=== PATIENT | male | born 1960 | race American Indian/Alaskan Native ===

== ENCOUNTER 2019-11-20 14:30 | Emergency (ER) | payer OTHER ==
[~2019-11-20] VITALS: Ht 160 cm; Wt 60.3 kg
[2019-11-20 15:05] LABS: PLATELET COUNT 358 K/uL (142-355)
[2019-11-20 15:13] LABS: POTASSIUM 4.1 mmol/L (3.6-5.2)
[2019-11-20 16:18] VITALS: BP 123/75; TEMP 98.6
[2019-11-20] MEDS ORDERED: ASPIRIN 81 LOW81 MG PO (17:59)
[2019-11-20] MEDS ORDERED: XARELTO20 MG PO (18:00)
[2019-11-20] MEDS ORDERED: AMLO2.5T PO (18:00)
[2019-11-20] MEDS ORDERED: CLARITIN10 M1 PO (18:01)
[2019-11-20] MEDS ORDERED: FLUOXETINE20 MG PO (18:01)
[2019-11-20] MEDS ORDERED: FERROUS SULF325 MG PO (18:01)
[2019-11-20] MEDS ORDERED: LACTULOSE10 GM/15 M PO (18:02)
[2019-11-20] MEDS ORDERED: DOK100 MG PO (18:03)
[2019-11-20] MEDS ORDERED: GRALISE600 MG PO (18:04)
[2019-11-20] MEDS ORDERED: ALLERGY RELIEF 25 MG PO (18:05)
[2019-11-20] MEDS ORDERED: CHLORASEPTIC1.4 % MT (18:05)
[2019-11-20] MEDS ORDERED: TYLENOL325 MG PO (18:06)
[2019-11-20] MEDS ORDERED: CHEST CONG100 MG/5 M PO (18:06)
[2019-11-20] MEDS ORDERED: DIPH12.521 PO (18:07)
[2019-11-20] MEDS ORDERED: TRAZODONE HYDRO50 MG PO (18:08)
[2019-11-20] MEDS ORDERED: HALO5INJ3 IM (18:08)
[2019-11-20] MEDS ORDERED: POLY GLYCOL3350 M1 PO (18:09)
[2019-11-20] MEDS ORDERED: LIPITOR80 MG PO (18:10)
[2019-11-20] MEDS ORDERED: [UNRECOGNIZED DRUG - OTHER] EX (18:46)
== END 2019-11-20 16:18 | disposition still patient (30) ==
LOC: ED 14:38
PROVIDERS: Hospitalist
DX: F03.91 Unspecified dementia, unspecified severity, with behavioral disturbance (principal); I69.359 Hemiplegia and hemiparesis following cerebral infarction affecting unspecified side; I69.391 Dysphagia following cerebral infarction; Z11.59 Encounter for screening for other viral diseases; Z04.6 Encounter for general psychiatric examination, requested by authority
CPT/HCPCS: 80053; 85027; 87635; 93005; 99283; U0003

== ENCOUNTER 2021-01-02 19:54 | Emergency (ER) | payer OTHER ==
[~2021-01-02] VITALS: Ht 160 cm; Wt 65.3 kg
[~2021-01-02 19:54] MED LIST: ALLERGY RELIEF 25 MG PO; AMLO2.5T PO; ARIPIPRAZOLE5 MG PO; ASPIRIN 81 LOW81 MG PO; ASPIRIN EC PO; CHEST CONG100 MG/5 M PO; CHLORASEPTIC1.4 % MT; CHOL100034 PO; CHOLECALCIFEROL PO; CIMETIDINE400 MG PO; CLARITIN10 M1 PO; DIPH12.521 PO; DIVALPROEX500 M1 PO; DOK100 MG PO; DONE5TAB PO; DONEPEZIL HYDRO10 MG PO; ESCI10TA PO; FERROUS SULF325 MG PO; FLUOXETINE20 MG PO; FOLI1TAB26 PO; GABA300C2 PO; GRALISE600 MG PO; HALO5INJ3 IM; HALO5INJ3 INJ; LACTULOSE10 GM/15 M PO; LIPITOR80 MG PO; LISITAB PO; MEMA10TA2 PO; MEMA5TAB PO; MOBIC7.5 M1 PO; POLY GLYCOL3350 M1 PO; REMERON SOLTAB15 MG PO; TEMA15CA19 PO; TRAZ50TA36 PO; TRAZODONE HYDRO50 MG PO; TYLENOL325 MG PO; XARELTO20 MG PO; [UNRECOGNIZED DRUG - OTHER] EX
[2021-01-02 20:15] LABS: PLATELET COUNT 152 K/uL (142-355)
[2021-01-02 20:25] LABS: POTASSIUM 4.6 mmol/L (3.6-5.2)
[2021-01-02 21:15] VITALS: BP 133/87; TEMP 97.8
[2021-01-03] MEDS ORDERED: MIRTAZAPINE7.5 MG PO (03:01)
[2021-01-03] MEDS ORDERED: TYLENOL325 MG PO (03:03)
[2021-01-03] MEDS ORDERED: TRAZ50TA36 PO (03:04)
[2021-01-03] MEDS ORDERED: LEVOFLOXACIN750 MG PO (03:06)
== END 2021-01-02 21:15 | disposition still patient (30) ==
LOC: ED 19:54
PROVIDERS: Hospitalist
DX: F25.9 Schizoaffective disorder, unspecified (principal); R46.89 Other symptoms and signs involving appearance and behavior; Z04.6 Encounter for general psychiatric examination, requested by authority; Z11.52 Encounter for screening for COVID-19
CPT/HCPCS: 36415; 80053; 81000; 85027; 87635; 93005; 99283; U0003